=== PATIENT | female | born 1960 | race Caucasian/White ===

== ENCOUNTER → 2020-04-06 | Outpatient (CLI) | payer OTHER ==
--- NOTE | 2020-04-08 10:55 | CON ---
[address] [address] CONSULTATION Name: MICHA BALLJERONIMO Burton Room: [facility]#: [id number] Admission: 04/06/20 Attend Phys: Jose Alberto Randolph MD Discharge: Date of : 56 Report #: [id number] THIS REPORT FOR: //name// cc: JOSE - No family physician/PCP FAM - No family physician/PCP ~ THIS REPORT FOR: //name// CC: Jose Alberto Mendez DATE OF CONSULTATION: 04/06/2020 [place] [facility] RADIATION ONCOLOGY CONSULT NOTE REFERRING PHYSICIANS: Include Dr. Talamantes, Dr. Mendez, Dr. Marino. PRIMARY SITE AND HISTOPATHOLOGY: The patient has a left breast cancer. HISTORY OF PRESENT ILLNESS: The patient palpated a left breast mass since about in December or January of 2020. She underwent a left mamm[facility] on [facility], which revealed a nodule in the left medial posterior breast measuring 1.3 x 1 cm. She went on to undergo a biopsy of this area on 03/29/2020 which revealed an invasive carcinoma and measured about 0.8 cm and it was grade 2. She had an MRI at [facility] on 04/05/2020 which revealed in the right breast a 0.6 cm enhancing nodule within the 10 o'clock position of the right breast and there was also an irregular nodular enhancement extending along the anterior inferior aspect of this lesion, which measured about 1.3 cm. The combination of the nodule and the adjacent nodular enhancement measured about 1.7 cm. There were benign-appearing right axillary lymph nodes. There were no suspicious internal mammary lymph nodes seen. In terms of the left breast, there was an irregular enhancing mass at the 10 o'clock position of the left breast abutting the pectoralis muscle and measured about 1.9 cm. x 0.9 cm. x 1.1 cm. There is also a tiny focus of enhancement within the adjacent left pectoralis muscle that measured 0.4 cm. There were benign-appearing left axillary lymph nodes, no suspicious internal mammary lymph nodes. The patient says she is scheduled to have an appointment with medical oncologist, Dr. Marino. She also has an appointment with her surgeon, Dr. Mendez on 04/16/2020. PAST MEDICAL HISTORY AND PAST SURGICAL HISTORY: In terms of her past medical history and past surgical history, the patient had a cholecystectomy in 1997 at [facility] [place], [place], hysterectomy in 1996 at [facility] [place], [place]. She had a tonsillectomy in 1963 [place] [address] CONSULTATION Name: JAYASHREE BALL Room: [facility] JUANA Teran#: [id number] Admission: 04/06/20 Attend Phys: Jose Alberto Randolph MD Discharge: Date of : 56 Report #: [id number] Center. [facility]: Include estradiol, which she stopped taking on 03/27/2020 and 100 mcg of levothyroxine, 75 mg of bupropion, and she also takes Advil as needed. ALLERGIES: SHE HAS AN ALLERGY OR ADVERSE REACTION TO CODEINE. FAMILY HISTORY: Mother had breast cancer. Brother had lung cancer. Sister had breast cancer/cervical cancer. Maternal grandfather had some type of cancer. Maternal uncle had lymphoma and a paternal grandmother had breast cancer. SOCIAL HISTORY: The patient is a electronic tester. She is . She has a 26-year-old daughter and a 32-year-old son. Ethanol: she occasionally drinks a glass of wine. Cigarettes: she used to smoke cigarettes for about 30 years and she quit smoking in 2006. In terms of the characteristics of breast cancer, the breast cancer was 67.8% estrogen receptor positive, 8.9% progesterone receptor positive, HER2/raheel negative, Ki-67 was 19.2%. REVIEW OF SYSTEMS: GENERAL: The patient denied having any fevers or chills. SKIN: The patient denied having any color changes or itching. LYMPH NODES: She denied having enlarged or painful glands in the neck. ENDOCRINE: She denied having any hot or cold intolerance. HEMATOLOGY AND IMMUNOLOGY: She denied having any anemia or recent bleeding. MUSCULOSKELETAL: She does have arthritis in her hands. HEAD AND NECK: She denied having any headaches or migraines. RESPIRATORY: She denied having any shortness of breath or cough. CARDIOVASCULAR: She denied having any palpitations. GASTROINTESTINAL: She denied having nausea or vomiting. NEUROLOGIC: She denied having any focal weakness. PHYSICAL EXAMINATION: With my nurse, Rosario Curran, present: VITAL SIGNS: Height was 5 feet 5 inches, weight 160.4 pounds, temperature 98.2 degrees Fahrenheit, blood pressure 124/67, respirations 20, pulse 59. PSYCHIATRIC: The patient was alert, oriented, in no acute distress. LYMPH NODES: The patient had no palpable cervical or supraclavicular or axillary lymphadenopathy. EYES: Pupils were equal, round and reactive to light and accommodation. HEAD, EARS, NOSE AND THROAT: Mouth had no visible lesions. HEART: Had a regular rate and rhythm without murmur. LUNGS: were clear to auscultation. BREASTS: In terms of the left breast, the patient did have a palpable mass at the 10 o'clock position of the left breast that measured 1.6 x 1 cm. There were no other suspicious palpable masses in the right breast. There were no other suspicious palpable masses in the left breast. ABDOMEN: Not [facility] [address] [place] [address] CONSULTATION Name: QUINNJAYASHREE L Room: [facility]#: [id number] Admission: 04/06/20 Attend Phys: Jose Alberto Randolph MD Discharge: Date of : 56 Report #: [id number] tender. Spleen was not palpable. Liver was at the costal margin. EXTREMITIES: Had no clubbing, cyanosis or edema. NEUROLOGIC: Cranial nerves 2-12 are intact. Sensation was intact. She has 5/5 strength in her extremities. ASSESSMENT AND PLAN: The patient was told that her treatment options are breast conservation therapy versus mastectomy and the option of breast conservation therapy will be dependent on whether it is surgically feasible to resect the breast cancers and get a cosmetically acceptible result. The data for supporting those options comes from NSABP B-06 which randomized patients between total mastectomy versus lumpectomy alone versus lumpectomy and radiation therapy. At 20 years followup, there was no difference in survival between those 3 treatment groups. The addition of radiation therapy to lumpectomy reduced the local failure rate from 39% to 14%. So the risks, benefits, and logistics of radiation therapy were explained to the patient in detail. At present, she is still contemplating what treatment options to pursue after her MRI. She also will discuss that further with the medical oncologist, Dr. Marino as well as her surgeon, Dr. Mendez and then make a decision. She was asked to follow up with me in about 4-6 weeks, which probably will be the period after she had her operation to check on the role for radiation therapy. If she pursues breast conservation therapy then radiation therapy is a standard part of breast conservation therapy. If she pursues mastectomy, then radiation therapy is only used in higher risk patients, like those who have lymph nodes involved with breast cancer. The radiation therapy is used to reduce the chance of local regional recurrence. Thank you very much for this consult. <ELECTRONICALLY SIGNED> By: Jose Alberto Randolph MD 04/08/20 [id number] Randolph MD /nt
== END ==
LOC: M.RTH 14:27
PROVIDERS: ATTEND Radiology Radiation Oncology
DX: C50.912 Malignant neoplasm of unspecified site of left female breast (principal); Z88.8 Allergy status to other drugs, medicaments and biological substances; Z79.899 Other long term (current) drug therapy

== ENCOUNTER → 2020-07-13 | Outpatient (CLI) | payer OTHER | LOC: M.RTH 09:00 | PROVIDERS: ATTEND Radiology Radiation Oncology | DX: C50.912 Malignant neoplasm of unspecified site of left female breast (principal) ==